=== PATIENT | female | born 2000 | race Two or more races ===

== ENCOUNTER 2025-01-24 15:07 | Emergency (ER) | payer OTHER ==
[~2025-01-24] VITALS: Ht 149.9 cm; Wt 42.6 kg
[2025-01-24] MEDS ORDERED: PRENATAL + DHA1 EAC1 PO (15:51)
[2025-01-24] MEDS ORDERED: 0.9 % SODIUM CHLORIDE 1,000 ML IV SCH (16:15)
[2025-01-24] MEDS ORDERED: FAMOTIDINE/PF 20 MG in 0.9 % SODIUM CHLORIDE 8 ML IV PUSH ONE (16:15)
[2025-01-24] MEDS ORDERED: ACETAMINOPHEN 500 MG GEL..CAP PO ONE (16:15)
[2025-01-24 17:47] LABS: BASO % 0.5 % (0.1-1.2); EOS # 0.24 (0.04-0.54); EOS % 2.0 % (0.7-7.0); LYMPH # 2.20 (1.18-3.74); LYMPH % 18.0 % (19.3-53.1); MEAN PLATELET VOLUME 10.20 fl (9.4-12.4); MONO # 0.90 (0.24-0.82); MONO % 7.4 % (4.7-12.5); NEUT # 8.78 (1.56-6.13); NEUT % 71.7 % (34.0-71.1); RED CELL DISTRIBUTION WIDTH 12.7 % (11.6-14.4)
[2025-01-24 18:13] LABS: URINE APPEARANCE Clear; URINE BILIRRUBIN Negative (NEGATIVE); URINE BLOOD Negative; URINE COLOR Yellow; URINE GLUCOSE Negative (NEGATIVE); URINE LEUKOCYTE Negative; URINE NITRATE Negative; URINE PROTEIN Negative (NEGATIVE); URINE UROBILINOGEN 0.2 E.U./dl
[2025-01-24 18:15] LABS: URINE BACTERIA 718.8 uL (0.0-1933); URINE EPITHELIAL CELLS 40.1 uL (0.0-38.8); URINE RBC 4.5 uL (0.0-20.8); URINE WBC 40.9 uL (0.0-23.2)
[2025-01-24 18:18] LABS: URINE CAST 0.73 uL (0.0-1.40); URINE KETONE 80 (NEGATIVE)
[2025-01-24 18:49] LABS: ALT/SGPT 17.0 U/L (12-78); AST/SGOT 15.0 U/L (15-37); BILIRUBIN TOTAL 0.39 mg/dL (0.3-1.2); BUN CREA RATIO 22.0 (7.0-25.0); CREATININE SERUM 0.5 mg/dL (0.55-1.02); GFR 149.14; GLOBULINA 3.3 G/DL (2.4-3.5); GLUCOSE FASTING 81.0 mg/dL (65-100); OSMOLALITY SERUM 276.0 MOSM/KG (275-295)
== END 2025-01-24 21:13 | disposition home or self-care (01) ==
LOC: ER 15:07
PROVIDERS: General Practice
DX: O26.891 Other specified pregnancy related conditions, first trimester (principal); Z3A.08 8 weeks gestation of pregnancy; R10.20 Pelvic and perineal pain unspecified side; R55 Syncope and collapse; R42 Dizziness and giddiness; Z88.6 Allergy status to analgesic agent